=== PATIENT | female | born 1965 | race Caucasian/White ===

== ENCOUNTER 2019-05-05 00:36 | Emergency (ER) | payer SELFPAY ==
[2019-05-05] MEDS ORDERED: Multivit, Adult Inj 10 ML VIAL ONE (01:39)
[2019-05-05] MEDS ORDERED: Thiamine HCl 200 MG/2 ML VIAL ONE (01:39)
[2019-05-05 01:42] LABS: ALT (SGPT) 28 U/L (8-55); AST (SGOT) 20 U/L (5-34); Acetaminophen Less than 6.0 mcg/mL (10.0-30.0); Albumin 4.5 g/dL (3.5-5.0); Alcohol 273 mg/dL (Less than 10); Alkaline Phosphatase 85 U/L (40-110); Anion Gap 17 mmol/L (10-20); BUN (Urea Nitrogen) 12 mg/dL (9.8-20.1); Bilirubin, Total 0.4 mg/dL (0.2-1.2); Calc. Creatinine Clearance 0 mL/min (70-130); Calcium 9.2 mg/dL (7.8-10.44); Carbon Dioxide 20 mmol/L (22-29); Chloride 101 mmol/L (98-107); Estimated GFR-MDRD 71; Glucose 101 mg/dL (70-105); Potassium 3.9 mmol/L (3.5-5.1); Protein, Total 7.5 g/dL (6.0-8.3); Salicylate Less than 8.0 mg/dL (15.0-30.0); Sodium 134 mmol/L (136-145)
[2019-05-05 01:52] LABS: Amphetamine Not Detected (NotDetected); Barbiturates Screen Not Detected (NotDetected); Benzodiazepine Screen Not Detected (NotDetected); Cocaine Metabolite Screen Not Detected (NotDetected); Medtox Control Line Valid? VALID (VALID); Methadone Not Detected (NotDetected); Methamphetamine Not Detected (NotDetected); Opiate Screen Not Detected (NotDetected); Oxycodone Screen Not Detected (NotDetected); Phencyclidine (PCP) Not Detected (NotDetected); THC/Cannabinoid Screen Not Detected (NotDetected); Tricyclic Screen Not Detected (NotDetected)
[2019-05-05 02:11] LABS: Band 1 % (5-11); Hemoglobin 13.3 g/dL (12.0-16.0); Lymphocytes 58 % (21-51); MDiff Complete? YES; Mean Corpuscular HGB CONC 33.3 g/dL (32.0-36.0); Mean Corpuscular Hemoglobin 31.6 pg (27.0-31.0); Mean Corpuscular Volume 94.9 fL (78.0-98.0); Mean Platelet Volume 5.9 fL (7.4-10.4); Monocytes 4 % (0-10); Neutrophil 37 % (42-75); Platelet Count 408 thou/uL (130-400); RBC Distribution Width 11.4 % (11.5-14.5); Red Blood Cell (RBC) Count 4.21 mill/uL (4.20-5.40); White Blood Cell (WBC) Count 11.2 thou/uL (4.8-10.8)
[2019-05-05] MEDS ORDERED: Dextrose 5 %-0.45 % NaCl 1000 ml Bag ONE (06:41)
== END 2019-05-05 10:39 | disposition home or self-care (01) ==
LOC: MADERS 00:36
DX: F10.129 Alcohol abuse with intoxication, unspecified (principal); Y90.3 Blood alcohol level of 60-79 mg/100 ml; F32.9 Major depressive disorder, single episode, unspecified; I10 Essential (primary) hypertension; F17.210 Nicotine dependence, cigarettes, uncomplicated
CPT/HCPCS: 36415; 80053; 80306; 80307; 84443; 85025; 96374; 96375; J3411; J7042

== ENCOUNTER 2020-04-06 13:44 | Emergency (ER) | payer SELFPAY ==
[2020-04-06 14:23] LABS: #Basophils 0.1 thou/uL (0.0-0.2); #Eosinphils 0.2 thou/uL (0.0-0.7); #Lymphocytes 3.2 thou/uL (1.20-3.40); #Monocytes 0.6 thou/uL (0.11-0.59); #Neutrophils 4.1 thou/uL (1.40-6.50); %Basophils 1.5 % (0.0-1.0); %Eosinophils 2.2 % (0.0-10.0); %Lymphocytes 38.4 % (21.0-51.0); %Monocytes 7.6 % (0.0-10.0); %Neutrophils 50.3 % (42.0-75.0); Hemoglobin 13.5 g/dL (12.0-16.0); Mean Corpuscular HGB CONC 33.4 g/dL (32.0-36.0); Mean Corpuscular Hemoglobin 31.8 pg (27.0-31.0); Mean Platelet Volume 6.1 fL (7.4-10.4); Platelet Count 372 thou/uL (130-400); RBC Distribution Width 10.5 % (11.5-14.5); Red Blood Cell (RBC) Count 4.26 mill/uL (4.20-5.40); White Blood Cell (WBC) Count 8.2 thou/uL (4.8-10.8)
[2020-04-06 14:35] LABS: INR-International Normal Ratio 0.9; Prothrombin Time 11.9 sec (12.0-14.7)
--- NOTE | 2020-04-06 14:42 | CT ---
CT HEAD WITHOUT CONTRAST: Indications: Vision disturbance. Comparison: None Correlation: Brain MRI 12-11-2019 FINDINGS: Ventricles have normal size and position. No evidence of intracranial mass or hemorrhage. There is no evidence of cortical infarct. Paranasal sinuses appear well aerated. There is a mucosal retention cy st in the right maxillary sinus anteriorly measuring approximately 1.5 cm. IMPRESSION: No acute intracranial abnormality. Findings relayed to ER physician at 2:25 p.m. POS: [facility]
--- NOTE | 2020-04-06 14:48 | RAD ---
PORTABLE CHEST: History: Mental status change. FINDINGS: Lungs are clear. Heart and mediastinum appear normal. Vasculature normal. IMPRESSION: No acute abnormality. POS: AGW
[2020-04-06 16:30] LABS: Anion Gap 17 mmol/L (10-20); Globulin 2.9 g/dL (2.4-3.5)
[2020-04-06 16:39] LABS: Albumin 4.4 g/dL (3.5-5.0)
[2020-04-06 16:41] LABS: Calcium 9.4 mg/dL (7.8-10.44); Chloride 106 mmol/L (98-107); Potassium 4.2 mmol/L (3.5-5.1); Sodium 140 mmol/L (136-145)
[2020-04-06 16:42] LABS: Glucose 124 mg/dL (70-105); Protein, Total 7.3 g/dL (6.0-8.3)
[2020-04-06 16:43] LABS: Carbon Dioxide 22 mmol/L (22-29)
[2020-04-06 16:44] LABS: Bilirubin, Total 0.3 mg/dL (0.2-1.2)
[2020-04-06 16:45] LABS: Alkaline Phosphatase 88 U/L (40-110); Calc. Creatinine Clearance 0 mL/min (70-130)
[2020-04-06 16:46] LABS: BUN (Urea Nitrogen) 14 mg/dL (9.8-20.1)
[2020-04-06 16:47] LABS: AST (SGOT) 14 U/L (5-34)
[2020-04-06 16:48] LABS: ALT (SGPT) 18 U/L (8-55)
== END 2020-04-06 17:04 | disposition home or self-care, planned readmission (81) ==
LOC: MADERS 13:44
DX: G45.9 Transient cerebral ischemic attack, unspecified (principal); I10 Essential (primary) hypertension; F17.210 Nicotine dependence, cigarettes, uncomplicated
CPT/HCPCS: 36415; 70450; 71045; 80053; 84484; 85025; 85610; 93005